=== PATIENT | female | born 1965 | race American Indian/Alaskan Native ===

== ENCOUNTER 2018-01-17 20:10 | Emergency (ER) | payer MEDICAID, MEDICARE ==
[2018-01-17] MEDS ORDERED: ZOFRAN IV ONE (20:36)
[2018-01-17] MEDS ORDERED: MORPHINE IV ONE (20:36)
[2018-01-17] MEDS ORDERED: ASPIRIN PO ONE (20:36)
[2018-01-17 20:53] LABS: Basophils % (Auto) 0.4 % (0.0-1.8); Eosinophils % (Auto) 0.6 % (0.0-4.3); Hemoglobin 11.5 gm/dl (10.1-14.3); Lymphocytes # (Auto) 1.5 K/mm3 (1.2-5.4); Lymphocytes % (Auto) 22.1 % (13.4-35.0); Mean Corpuscular HGB Conc 33 % (30-34); Mean Corpuscular Hemoglobin 27 pg (28-32); Mean Corpuscular Volume 82 fl (79-97); Monocytes % (Auto) 13.7 % (0.0-7.3); Platelet Count 237 K/mm3 (140-440); Red Blood Count 4.29 M/mm3 (3.65-5.03); Red Cell Distribution Width 15.2 % (13.2-15.2)
[2018-01-17 21:01] VITALS: BP 117/77
[2018-01-17 21:09] LABS: Alanine Aminotransferase 13 units/L (7-56); Albumin 4.1 g/dL (3.9-5); BUN/Creatinine Ratio 10; Blood Urea Nitrogen 6 mg/dL (7-17); Calcium 8.7 mg/dL (8.4-10.2); Hemolysis Index 0; Lipase 13 units/L (13-60)
[2018-01-17 21:10] LABS: INR 1.1 (0.87-1.13)
[2018-01-17 21:11] LABS: Partial Thromboplastin Time 33.8 Sec. (24.2-36.6)
--- NOTE | 2018-01-17 23:35 | Cat Scan Report ---
FINAL REPORT EXAM: CT ANGIO CHEST HISTORY: severe chest pain TECHNIQUE: High-resolution helical axial images were obtained of the chest during intravenous administration of iodinated contrast. Images are reconstructed in the sagittal and coronal planes. PRIORS: None. FINDINGS: There is no evidence of pulmonary embolism, the pulmonary arteries opacify normally. The heart and thoracic aorta appear normal. There are numerous small mediastinal lymph nodes several of which are calcified consistent with old granulomatous disease. There is an enlarged subcarinal lymph node measuring 1.6 x 3.9 cm without calcification. There is right hilar adenopathy measuring 3.0 x 2.0 cm. Is a cluster of mildly enlarged right infrahilar lymph nodes without calcification. These are adjacent to a focal medial right lower lobe consolidative infiltrate. There is bibasilar dependent atelectasis. There is a ground-glass infiltrate in the anterior medial right middle lobe. Images through the upper abdomen are unremarkable. The bones are unremarkable. IMPRESSION: 1. No evidence of pulmonary embolism. 2. There is a infiltrate in the medial right lower lobe consistent with pneumonia. A small ground-glass infiltrate in the anterior medial right middle lobe also likely represents pneumonia. 3. Calcified mediastinal lymph nodes are consistent with old granulomatous disease. There are numerous enlarged mediastinal and right hilar lymph nodes that are abnormal. They may be associated with granulomatous disease or infection but neoplasm cannot be excluded. Follow-up CT is recommended in 6-8 weeks.
[2018-01-17] MEDS ORDERED: ZITHROMAX 500 MG in NACL 0.9% 250ML 250 ML IV ONE (23:41)
[2018-01-17] MEDS ORDERED: ROCEPHIN/NS 2 GM/100 ML 2 GM/100 ML BAG IV ONE (23:41)
[2018-01-18] MEDS ORDERED: cefTRIAXone 2 GM in NACL 0.9% 20 ML IV ONE (01:00)
--- NOTE | 2018-01-18 01:57 | Emergency Department Report ---
HPI - General Chief Complaint: Chest Pain Time Seen by Provider: 01/17/18 20:20 ED Past Medical Hx - Past Medical History Hx Hypertension: Yes (no meds) Hx Arthritis: Yes - Social History Smoking Status: Current Every Day Smoker Substance Use Type: Alcohol - Medications Home Medications: Home Medications Medication Instructions Recorded Confirmed Last Taken Type Ibuprofen [Motrin 800 MG tab] 800 mg PO TID #30 tablet 08/09/13 03/22/15 Rx Benzonatate [Tessalon Perles] 100 mg PO Q8HR PRN #30 capsule 01/18/18 Unknown Rx Levofloxacin [Levaquin] 750 mg PO QDAY #7 tablet 01/18/18 Unknown Rx ED Review of Systems ROS: Stated complaint: CHEST PAIN Other details as noted in HPI Physical Exam - Physical Exam Vital Signs: Vital Signs 01/17/18 20:35 Temperature 98.7 F Pulse Rate 80 Respiratory 18 Rate Blood Pressure 117/77 Blood Pressure 117/77 [Left] O2 Sat by Pulse 95 Oximetry Physical Exam: - Physical Exam Physical Exam: - General Limitations: No Limitations General appearance: alert, in no apparent distress, obese - Head Head exam: Present: atraumatic, normocephalic - Eye Eye exam: Present: normal appearance - ENT ENT exam: Present: mucous membranes moist - Neck Neck exam: Present: normal inspection - Respiratory Respiratory exam: Present: normal lung sounds bilaterally. Absent: respiratory distress - Cardiovascular Cardiovascular Exam: Present: normal rhythm, tachycardia. Absent: systolic murmur, diastolic murmur, rubs, gallop - GI/Abdominal GI/Abdominal exam: Present: soft, normal bowel sounds - Extremities Exam Extremities exam: Present: normal inspection - Back Exam Back exam: Present: normal inspection - Neurological Exam Neurological exam: Present: alert, oriented X3 - Psychiatric Psychiatric exam: normal affect and mood - Skin Skin exam: Present: warm, dry, intact, normal color. Absent: rash ED Course Vital Signs 01/17/18 20:35 Temperature 98.7 F Pulse Rate 80 Respiratory 18 Rate Blood Pressure 117/77 Blood Pressure 117/77 [Left] O2 Sat by Pulse 95 Oximetry ED Medical Decision Making - Lab Data Result diagrams: 01/17/18 20:40 01/17/18 20:40 Critical care attestation.: If time is entered above; I have spent that time in minutes in the direct care of this critically ill patient, excluding procedure time. ED Disposition Clinical Impression: Pneumonia Qualifiers: Pneumonia type: due to unspecified organism Laterality: bilateral Lung location : lower lobe of lung Qualified Code(s): J18.1 - Lobar pneumonia, unspecified organism Disposition: TO HOME OR SELFCARE Is pt being admited?: No Does the pt Need Aspirin: No Condition: Stable Instructions: Bacterial Pneumonia (ED) Prescriptions: Benzonatate [Tessalon Perles] 100 mg PO Q8HR PRN #30 capsule PRN Reason: Cough Levofloxacin [Levaquin] 750 mg PO QDAY #7 tablet Referrals: DONNA JONES MD [Primary Care Provider] - 3-5 Days
== END 2018-01-18 02:35 | disposition home or self-care (01) ==
LOC: ED 20:10
DX: J18.9 Pneumonia, unspecified organism (principal); I10 Essential (primary) hypertension; M19.90 Unspecified osteoarthritis, unspecified site; F17.200 Nicotine dependence, unspecified, uncomplicated
CPT/HCPCS: 36415; 71275; 80053; 82150; 82550; 83690; 83880; 84484; 85025; 85379; 85610; 85730; 93005; 93010; 96365; 96375; 99284; J0456; J0696; J2270; J2405; J7050; Q9967

== ENCOUNTER 2019-05-17 09:35 | Emergency (ER) | payer SELFPAY ==
[2019-05-17] MEDS ORDERED: BENTYL IM ONE (10:09)
[2019-05-17] MEDS ORDERED: NACL 0.9% 1000 ML 1,000 ML IV ONE (10:09)
[2019-05-17] MEDS ORDERED: PEPCID IV ONE (10:09)
[2019-05-17] MEDS ORDERED: ZOFRAN IV ONE (10:09)
[2019-05-17 10:32] LABS: Basophils % (Auto) 0.6 % (0.0-1.8); Eosinophils # (Auto) 0.1 K/mm3 (0.0-0.4); Eosinophils % (Auto) 1.4 % (0.0-4.3); Hematocrit 40.9 % (30.3-42.9); Hemoglobin 13.5 gm/dl (10.1-14.3); Lymphocytes # (Auto) 1.7 K/mm3 (1.2-5.4); Lymphocytes % (Auto) 47.6 % (13.4-35.0); Mean Corpuscular HGB Conc 33 % (30-34); Mean Corpuscular Volume 78 fl (79-97); Monocytes # (Auto) 0.3 K/mm3 (0.0-0.8); Monocytes % (Auto) 8.8 % (0.0-7.3); Platelet Count 272 K/mm3 (140-440); Red Blood Count 5.21 M/mm3 (3.65-5.03); Red Cell Distribution Width 15.2 % (13.2-15.2)
[2019-05-17 10:57] LABS: Alanine Aminotransferase 26 units/L (7-56); Albumin 4.7 g/dL (3.9-5); BUN/Creatinine Ratio 20; Blood Urea Nitrogen 10 mg/dL (7-17); Calcium 9.9 mg/dL (8.4-10.2); Hemolysis Index 6
--- NOTE | 2019-05-17 12:31 | Emergency Department Report ---
ED N/V/D HPI - General Chief complaint: Nausea/Vomiting/Diarrhea Stated complaint: VOMITING/DIZZINESS/HIGH BP Time Seen by Provider: 05/17/19 10:08 Source: patient Mode of arrival: Ambulatory Limitations: No Limitations - History of Present Illness Initial comments: Patient is a 53-year-old female who is presenting with epigastric discomfort with nausea vomiting and slight loose stools. Patient states she has a history of these type of episodes in the past and has a history of GERD. Patient takes omeprazole but states it 7 times a year she does have episodes where she can't stop vomiting. She denies any fevers chills cough, con gestion at this time. - Related Data Previous Rx's Medication Instructions Recorded Last Taken Type Ibuprofen [Motrin 800 MG tab] 800 mg PO TID #30 tablet 08/09/13 03/22/15 Rx Benzonatate [Tessalon Perles] 100 mg PO Q8HR PRN #30 capsule 01/18/18 Unknown Rx levoFLOXacin [Levaquin] 750 mg PO QDAY #7 tablet 01/18/18 Unknown Rx Omeprazole 40 mg PO DAILY #30 capsule. 08/15/18 Unknown Rx amLODIPine [Norvasc] 10 mg PO DAILY #30 tab 08/15/18 Unknown Rx Dicyclomine [Bentyl] 20 mg PO QID #10 tablet 05/17/19 Unknown Rx Famotidine [Pepcid] 40 mg PO QHS #10 tablet 05/17/19 Unknown Rx Ondansetron [Zofran Odt] 4 mg PO Q8HR #10 tab.rapdis 05/17/19 Unknown Rx Allergies Allergy/AdvReac Type Severity Reaction Status Date / Time No Known Allergies Allergy Unverified 08/09/13 13:05 ED Review of Systems ROS: Stated complaint: VOMITING/DIZZINESS/HIGH BP Other details as noted in HPI Comment: All other systems reviewed and negative ED Past Medical Hx - Past Medical History Previous Medical History?: Yes Hx Hypertension: Yes (no meds) Hx Arthritis: Yes - Surgical History Past Surgical History?: No - Social History Smoking Status: Current Every Day Smoker Substance Use Type: None - Medications Home Medications: Home Medications Medication Instructions Recorded Confirmed Last Taken Type Ibuprofen [Motrin 800 MG tab] 800 mg PO TID #30 tablet 08/09/13 03/22/1503/22 Rx Benzonatate [Tessalon Perles] 100 mg PO Q8HR PRN #30 capsule 01/18/18 Unknown Rx levoFLOXacin [Levaquin] 750 mg PO QDAY #7 tablet 01/18/18 Unknown Rx Omeprazole 40 mg PO DAILY #30 capsule. 08/15/18 Unknown Rx amLODIPine [Norvasc] 10 mg PO DAILY #30 tab 08/15/18 Unknown Rx Dicyclomine [Bentyl] 20 mg PO QID #10 tablet 05/17/19 Unknown Rx Famotidine [Pepcid] 40 mg PO QHS #10 tablet 05/17/19 Unknown Rx Ondansetron [Zofran Odt] 4 mg PO Q8HR #10 tab.rapdis 05/17/19 Unknown Rx ED Physical Exam - General Limitations: No Limitations General appearance: alert, in no apparent distress - Head Head exam: Present: atraumatic, normocephalic - Eye Eye exam: Present: normal appearance - ENT ENT exam: Present: mucous membranes moist - Neck Neck exam: Present: normal inspection - Respiratory Respiratory exam: Present: normal lung sounds bilaterally. Absent: respiratory distress, wheezes, rales, rhonchi - Cardiovascular Cardiovascular Exam: Present: regular rate, normal rhythm. Absent: systolic murmur, diastolic murmur, rubs, gallop - GI/Abdominal GI/Abdominal exam: Present: soft, tenderness (epigastric), normal bowel sounds. Absent: distended, guarding, rebound, rigid - Extremities Exam Extremities exam: Present: normal inspection - Back Exam Back exam: Present: normal inspection - Neurological Exam Neurological exam: Present: alert, oriented X3 - Psychiatric Psychiatric exam: Present: normal affect, normal mood - Skin Skin exam: Present: warm, dry, intact, normal color. Absent: rash ED Course Vital Signs 05/17/19 09:52 Temperature 97.9 F Pulse Rate 90 Respiratory 20 Rate Blood Pressure 134/91 O2 Sat by Pulse 98 Oximetry ED Medical Decision Making - Lab Data Result diagrams: 05/17/19 10:13 05/17/19 10:13 Lab Results 05/17/19 05/17/19 Range/Units 10:13 10:13 WBC 3.6 L (4.5-11.0) K/mm3 RBC 5.21 H (3.65-5.03) M/mm3 Hgb 13.5 (10.1-14.3) gm/dl Hct 40.9 (30.3-42.9) % MCV 78 L (79-97) fl MCH 26 L (28-32) pg MCHC 33 (30-34) % RDW 15.2 (13.2-15.2) % Plt Count 272 (140-440) K/mm3 Lymph % (Auto) 47.6 H (13.4-35.0) % [place] % (Auto) 8.8 H (0.0-7.3) % Eos % (Auto) 1.4 (0.0-4.3) % Baso % (Auto) 0.6 (0.0-1.8) % Lymph # 1.7 (1.2-5.4) K/mm3 [place] # 0.3 (0.0-0.8) K/mm3 Eos # 0.1 (0.0-0.4) K/mm3 Baso # 0.0 (0.0-0.1) K/mm3 Seg Neutrophils % 41.6 (40.0-70.0) % Seg Neutrophils # 1.5 L (1.8-7.7) K/mm3 Sodium 142 (137-145) mmol/L Potassium 3.8 (3.6-5.0) mmol/L Chloride 105.1 (98-107) mmol/L Carbon Dioxide 23 (22-30) mmol/L Anion Gap 18 mmol/L BUN 10 (7-17) mg/dL Creatinine 0.5 L (0.7-1.2) mg/dL Estimated GFR > 60 ml/min BUN/Creatinine Ratio 20 % Glucose 127 H (65-100) mg/dL Calcium 9.9 (8.4-10.2) mg/dL Total Bilirubin 0.40 (0.1-1.2) mg/dL AST 20 (5-40) units/L ALT 26 (7-56) units/L Alkaline Phosphatase 104 (35-129) units/L Total Protein 8.4 H (6.3-8.2) g/dL Albumin 4.7 (3.9-5) g/dL Albumin/Globulin Ratio 1.3 % Lipase 18 (13-60) units/L - Medical Decision Making Patient was hydrated and given pain medications for symptomatic relief. Patient states that she feels much improved. Left wrist is unremarkable. Patient be discharged home follow up with her GI doctor Critical care attestation.: If time is entered above; I have spent that time in minutes in the direct care of this critically ill patient, excluding procedure time. ED Disposition Clinical Impression: Gastroenteritis Disposition: DC-01 TO HOME OR SELFCARE Is pt being admited?: No Does the pt Need Aspirin: No Condition: Stable Instructions: Gastroenteritis (ED) Additional Instructions: Please follow-up with your senior web analyst Referrals: JOSH GARCIAS MD [Primary Care Provider] - 3-5 Days Time of Disposition: 12:30
[2019-05-17 12:46] VITALS: BP 136/90
[2019-05-17 12:58] LABS: Bilirubin,Urine NEG (Negative); Color,Urine Yellow (Yellow)
[2019-05-17 12:59] LABS: Blood,Urine SM (Negative); Protein,Urine <15 mg/dL mg/dL (Negative); Urobilinogen,Urine < 2.0 mg/dL (<2.0)
== END 2019-05-17 12:45 | disposition home or self-care (01) ==
LOC: ED 09:35
DX: K52.9 Noninfective gastroenteritis and colitis, unspecified (principal); I10 Essential (primary) hypertension; M19.90 Unspecified osteoarthritis, unspecified site; F17.200 Nicotine dependence, unspecified, uncomplicated; Z79.899 Other long term (current) drug therapy
CPT/HCPCS: 36415; 80053; 81001; 83690; 85025; 96361; 96372; 96374; 96375; 99283; J0500; J2405; J7030

== ENCOUNTER 2019-09-12 13:54 | Emergency (ER) | payer SELFPAY ==
[2019-09-12 14:20] VITALS: BP 132/81
[2019-09-12] MEDS ORDERED: IBUPROFEN 600 MG TAB PO ONE (17:25)
--- NOTE | 2019-09-12 17:26 | Event Note ---
ED Screening Note Date of service: 09/12/19 Time: 17:26 ED Screening Note: 54 y o female presents with URI sx and malaise This initial assessment/diagnostic orders/clinical plan/treatment(s) is/are subject to change based on patients health status, clinical progression and re- assessment by fellow clinical providers in the ED. Further treatment and workup at subsequent clinical providers discretion. Patient/guardian urged not to elope from the ED as their condition may be serious if not clinically assessed and managed. Initial orders include: cxr
--- NOTE | 2019-09-12 17:58 | XRay Report ---
CHEST PA AND LATERAL VIEWS INDICATION: cough/malaise. COMPARISON: No prior chest radiograph. Compared with chest CT of 01/18/2019. FINDINGS: Support devices: None Heart: Normal Lungs/Pleura: No acute pulmonary or pleural findings. On plain radiograph, I do not see evidence of m ediastinal and right hilar adenopathy. IMPRESSION: 1. No acute disease. Signer Name: Brian Guevara MD Signed: 09/12/2019 5:53 PM Workstation Name: [id number]
[2019-09-12] MEDS ORDERED: dexAMETHasone 4 MG/ML VIAL IM STA (19:37)
[2019-09-12] MEDS ORDERED: IBUPROFEN 800 MG TAB PO ONE (19:37)
--- NOTE | 2019-09-12 19:37 | Emergency Department Report ---
Minor Respiratory - HPI Chief Complaint: Sore Throat Stated Complaint: SORE THROAT/NIGHT SWEATS Time Seen by Provider: 09/12/19 19:36 Duration: 5 Days Pain Location: Facial, Throat Severity: severe Minor Respiratory: Yes Rhinorrhea, Yes Sore Throat (10/10), Yes Able to Tolerate Fluids, Yes Cough (dry cough), Yes Sick Contacts, No Ear Pain, No Hemoptysis, No Chest Pain, No Shortness of Breath, No Fever Other History: This is a 54-year-old female patient here complaining of sore throat and facial pain, night sweats this is started over 5 days ago was getting worse over the last 2 days and return for night sweats 2 nights ago with nasal congestion. Sore throat is 10/10. Denies any nausea or vomiting. Denies any chest pain or shortness of breath. Reports dry cough. Over the counter sinus medication taken without any relief. Pain is worse with swallowing. Denies any drooling. ED Review of Systems ROS: Stated complaint: SORE THROAT/NIGHT SWEATS Other details as noted in HPI Constitutional: chills Eyes: denies: eye discharge ENT: throat pain, congestion Respiratory: cough. denies: shortness of breath, SOB with exertion, SOB at rest, stridor, wheezing Cardiovascular: denies: chest pain, dyspnea on exertion Gastrointestinal: denies: nausea, vomiting Musculoskeletal: denies: back pain, joint swelling, arthralgia, myalgia Skin: denies: rash Neurological: denies: headache ED Past Medical Hx - Past Medical History Previous Medical History?: Yes Hx Hypertension: Yes (no meds) Hx Arthritis: Yes - Surgical History Past Surgical History?: Yes Additional Surgical History: Hysterectomy - Family History Family history: hypertension - Social History Smoking Status: Current Every Day Smoker Substance Use Type: Alcohol - Medications Home Medications: Home Medications Medication Instructions Recorded Confirmed Last Taken Type Ibuprofen [Motrin 800 MG tab] 800 mg PO TID #30 tablet 08/09/13 03/22/15 03/22/15 Rx Benzonatate [Tessalon Perles] 100 mg PO Q8HR PRN #30 capsule 01/18/18 Unknown Rx levoFLOXacin [Levaquin] 750 mg PO QDAY #7 tablet 01/18/18 Unknown Rx Omeprazole 40 mg PO DAILY #30 capsule 08/15/18 Unknown Rx amLODIPine 10 mg PO DAILY #30 tab 08/15/18 Unknown Rx Dicyclomine [Bentyl] 20 mg PO QID #10 tablet 05/17/19 Unknown Rx Famotidine [Pepcid] 40 mg PO QHS #10 tablet 05/17/19 Unknown Rx Ondansetron [Zofran Odt] 4 mg PO Q8HR #10 tab.rapdis 05/17/19 Unknown Rx Amoxicillin/K Clav Tab [Augmentin 1 tab PO Q12HR #20 tab 09/12/19 Unknown Rx 875MG TAB] Cetirizine HCl [ZyrTEC] 10 mg PO QAM 14 Days #14 capsule 09/12/19 Unknown Rx Fluticasone [Flonase] 1 spray NS QDAY 14 Days #1 bottle 09/12/19 Unknown Rx Ibuprofen [Motrin 600 MG tab] 600 mg PO Q8H PRN #15 tablet 09/12/19 Unknown Rx guaiFENesin/CODEINE [Robitussin AC] 10 ml PO QHS PRN #70 oral.liqd 09/12/19 Unknown Rx predniSONE [Deltasone] 50 mg PO QDAY 3 Days #3 tab 09/12/19 Unknown Rx Minor Respiratory Exam - Exam General: Vital signs noted. No distress. Alert and acting appropriately. This is a 54-year-old female well-nourished well-developed in no acute distress. HEENT: Yes Pharyngeal Erythema (bilateral tonsillar enlargement and erythema.), Yes Moist Mucous Membranes, Yes Rhinorrhea (clear nasal drainage with mucosal erythema and thickening.), Yes Frontal Tenderness, Yes Maxillary Tenderness, No Pharyngeal Exudates, No Conjuctival Injection Ear: Neither TM Bulge (bilateral middle ear effusion), Neither TM Erythema, Neither EAC Pain, Neither EAC Discharge Neck: Yes Supple, No Adenopathy Lungs: Yes Good Air Exchange, Yes Cough (dry cough), No Wheezes, No Ronchi, No Stridor, No Labored Respirations, No Retractions, No Use of Accessory Muscles, No Other Abnormal Lung Sounds Heart: Yes Regular, No Murmur Abdomen: Yes Normal Bowel Sounds, No Tenderness, No Peritoneal Signs Skin: No Rash, No Edema Neurologic: Alert and oriented, no deficits. Musculoskeletal: Unremarkable. No cce. + 2 pulses in all extremities, no neurovascular compromise ED Course Vital Signs 09/12/19 14:16 Temperature 98.4 F Pulse Rate 87 Respiratory 18 Rate Blood Pressure 132/81 O2 Sat by Pulse 97 Oximetry - Reevaluation(s) Reevaluation #1: 09/12/19 20:06 She given ibuprofen 800 mg by mouth and Decadron 10 mg IM in emergency room ED Medical Decision Making - Radiology Data Radiology results: report reviewed Chest x-ray dictated by radiologist and report reviewed by myself and no acute findings. Unable to properly area due to computer malfunction. - Medical Decision Making This is a 54-year-old female here reports that she has been having symptoms of sore throats that is getting worse over the last 2 days. She is found to have sinusitis and tonsillitis with cough. X-ray dictated by radiologist report reviewed by myself and no acute cardiopulmonary findings. Patient is stable in no acute distress she was given Decadron and ibuprofen in emergency room . Discussed with her x-ray results she voiced understanding patient follow-up with her primary care physician in 2-3 days and she voiced understanding. Vital signs stable she is afebrile and discharged home with her family member in stable condition. She has no pain at present. Patient discharged home with prescription for guaifenesin with codeine cough syrup, Augmentin, Zyrtec, Flonase, Motrin and prednisone. - Differential Diagnosis PNA, bronchitis, strep versus tonsillitis, urinary cough and congestion, si Critical care attestation.: If time is entered above; I have spent that time in minutes in the direct care of this critically ill patient, excluding procedure time. ED Disposition Clinical Impression: Cough in adult Acute tonsillitis Qualifiers: Pharyngitis/tonsillitis etiology: unspecified etiology Qualified Code(s): J03.90 - Acute tonsillitis, unspecified Sinusitis, acute Qualifiers: Sinusitis location: pansinusitis Recurrence: not specified as recurrent Qualified Code(s): J01.40 - Acute pansinusitis, unspecified Disposition: - TO HOME OR SELFCARE Is pt being admited?: No Does the pt Need Aspirin: No Condition: Stable Instructions: Sinusitis (ED), Tonsillitis (ED), Acute Cough (ED) Additional Instructions: Follow up with primary care physician in 2-3 days Take Medication as prescribed Symptoms worsen, return to the emergency room. Rest and increasing fluid intake. Please do not drive or operate heavy machinery while taking cough medicine with codeine for cough is seen cause drowsiness. Referrals: PRIMARY CARE,MD [Primary Care Provider] - 3-5 Days Forms: Accompanied Note, Work/School Release Form(ED)
== END 2019-09-12 20:30 | disposition home or self-care (01) ==
LOC: ED 13:54
DX: R05 Cough (principal); J03.90 Acute tonsillitis, unspecified; J01.90 Acute sinusitis, unspecified; I10 Essential (primary) hypertension; M19.90 Unspecified osteoarthritis, unspecified site; F17.200 Nicotine dependence, unspecified, uncomplicated; Z90.710 Acquired absence of both cervix and uterus; Z79.1 Long term (current) use of non-steroidal anti-inflammatories (NSAID); Z79.2 Long term (current) use of antibiotics; Z79.899 Other long term (current) drug therapy
CPT/HCPCS: 71046; 96372; 99283; J1100

== ENCOUNTER 2020-10-13 09:16 | Emergency (ER) | payer SELFPAY ==
[2020-10-13 09:32] VITALS: BP 149/80
[2020-10-13 10:22] LABS: Bilirubin,Urine NEG (Negative); Blood,Urine NEG (Negative); Color,Urine Yellow (Yellow); Mucus,Urine FEW /HPF; Protein,Urine <15 mg/dL mg/dL (Negative); RBC,Urine < 1.0 /HPF (0.0-6.0); Urobilinogen,Urine < 2.0 mg/dL (<2.0); WBC,Urine < 1.0 /HPF (0.0-6.0)
[2020-10-13 10:53] LABS: Basophils % (Auto) 0.6 % (0.0-1.8); Eosinophils # (Auto) 0.1 K/mm3 (0.0-0.4); Eosinophils % (Auto) 1.5 % (0.0-4.3); Hematocrit 38.7 % (30.3-42.9); Hemoglobin 12.9 gm/dl (10.1-14.3); Lymphocytes # (Auto) 2.2 K/mm3 (1.2-5.4); Lymphocytes % (Auto) 45.3 % (13.4-35.0); Mean Corpuscular HGB Conc 33 % (30-34); Mean Corpuscular Volume 82 fl (79-97); Monocytes # (Auto) 0.4 K/mm3 (0.0-0.8); Monocytes % (Auto) 8.1 % (0.0-7.3); Platelet Count 250 K/mm3 (140-440); Red Blood Count 4.74 M/mm3 (3.65-5.03); Red Cell Distribution Width 14.9 % (13.2-15.2)
[2020-10-13 11:15] LABS: Alanine Aminotransferase 19 units/L (7-56); Albumin 4.4 g/dL (3.9-5); Blood Urea Nitrogen 11 mg/dL (7-17); Calcium 9.8 mg/dL (8.4-10.2); Hemolysis Index 5
[2020-10-13 11:16] LABS: BUN/Creatinine Ratio 16
[2020-10-13] MEDS ORDERED: oxyCODONE /ACETAMINOPHEN 5-325MG TAB PO ONE (12:11)
[2020-10-13] MEDS ORDERED: ONDANSETRON 4 MG ODT TAB PO ONE (12:11)
--- NOTE | 2020-10-13 12:55 | Emergency Department Report ---
ED General Adult HPI - General Chief complaint: Abdominal Pain Stated complaint: STOMACH PAIN Time Seen by Provider: 10/13/20 12:10 Source: patient Mode of arrival: Ambulatory Limitations: No Limitations - History of Present Illness Initial comments: 55-year-old female presenting with chief complaint of left lower quadrant abdominal pain x1.5 weeks. She reports slight nausea and slight dysuria but denies vomiting, fevers, diarrhea. She states some constipation but had a bowel movement today. Pain is nonradiating and described as moderate. It is intermittent. No alleviating or exacerbating factors. Severity scale (0 -10): 8 - Related Data Previous Rx's Medication Instructions Recorded Last Taken Type Ibuprofen [Motrin 800 MG tab] 800 mg PO TID #30 tablet 08/09/13 03/22/15 Rx Benzonatate [Tessalon Perles] 100 mg PO Q8HR PRN #30 capsule 01/18/18 Unknown Rx levoFLOXacin [Levaquin] 750 mg PO QDAY #7 tablet 01/18/18 Unknown Rx Omeprazole 40 mg PO DAILY #30 capsule.dr 08/15/18 Unknown Rx amLODIPine 10 mg PO DAILY #30 tab 08/15/18 Unknown Rx Dicyclomine [Bentyl] 20 mg PO QID #10 tablet 05/17/19 Unknown Rx Famotidine [Pepcid] 40 mg PO QHS #10 tablet 05/17/19 Unknown Rx Ondansetron [Zofran Odt] 4 mg PO Q8HR #10 tab.rapdis 05/17/19 Unknown Rx Amoxicillin/K Clav Tab [Augmentin 1 tab PO Q12HR #20 tab 09/12/19 Unknown Rx 875MG TAB] Cetirizine HCl [ZyrTEC] 10 mg PO QAM 14 Days #14 capsule 09/12/19 Unknown Rx Fluticasone [Flonase] 1 spray NS QDAY 14 Days #1 bottle 09/12/19 Unknown Rx Ibuprofen [Motrin 600 MG tab] 600 mg PO Q8H PRN #15 tablet 09/12/19 Unknown Rx guaiFENesin/CODEINE [Robitussin AC] 10 ml PO QHS PRN #70 oral.liqd 09/12/19 Unknown Rx predniSONE [Deltasone] 50 mg PO QDAY 3 Days #3 tab 09/12/19 Unknown Rx Allergies Allergy/AdvReac Type Severity Reaction Status Date / Time No Known Allergies Allergy Verified 10/13/20 09:27 ED Review of Systems ROS: Stated complaint: STOMACH PAIN Other details as noted in HPI Comment: All other systems reviewed and negative Gastrointestinal: as per HPI ED Past Medical Hx - Past Medical History Hx Hypertension: Yes (no meds) Hx Arthritis: Yes - Surgical History Additional Surgical History: Hysterectomy - Social History Smoking Status: Never Smoker Substance Use Type: None - Medications Home Medications: Home Medications Medication Instructions Recorded Confirmed Last Taken Type Ibuprofen [Motrin 800 MG tab] 800 mg PO TID #30 tablet 08/09/13 03/22/15 03/22/15 Rx Benzonatate [Tessalon Perles] 100 mg PO Q8HR PRN #30 capsule 01/18/18 Unknown Rx levoFLOXacin [Levaquin] 750 mg PO QDAY #7 tablet 01/18/18 Unknown Rx Omeprazole 40 mg PO DAILY #30 capsule. 08/15/18 Unknown Rx amLODIPine 10 mg PO DAILY #30 tab 08/15/18 Unknown Rx Dicyclomine [Bentyl] 20 mg PO QID #10 tablet 05/17/19 Unknown Rx Famotidine [Pepcid] 40 mg PO QHS #10 tablet 05/17/19 Unknown Rx Ondansetron [Zofran Odt] 4 mg PO Q8HR #10 tab.rapdis 05/17/19 Unknown Rx Amoxicillin/K Clav Tab [Augmentin 1 tab PO Q12HR #20 tab 09/12/19 Unknown Rx 875MG TAB] Cetirizine HCl [ZyrTEC] 10 mg PO QAM 14 Days #14 capsule 09/12/19 Unknown Rx Fluticasone [Flonase] 1 spray NS QDAY 14 Days #1 bottle 09/12/19 Unknown Rx Ibuprofen [Motrin 600 MG tab] 600 mg PO Q8H PRN #15 tablet 09/12/19 Unknown Rx guaiFENesin/CODEINE [Robitussin AC] 10 ml PO QHS PRN #70 oral.liqd 09/12/19 Unknown Rx predniSONE [Deltasone] 50 mg PO QDAY 3 Days #3 tab 09/12/19 Unknown Rx ED Physical Exam - General Limitations: No Limitations General appearance: alert, in no apparent distress - Head Head exam: Present: atraumatic, normocephalic - Eye Eye exam: Present: normal appearance - ENT ENT exam: Present: mucous membranes moist - Neck Neck exam: Present: normal inspection - Respiratory Respiratory exam: Present: normal lung sounds bilaterally. Absent: respiratory distress - Cardiovascular Cardiovascular Exam: Present: regular rate, normal rhythm. Absent: systolic murmur, diastolic murmur, rubs, gallop - GI/Abdominal GI/Abdominal exam: Present: soft, tenderness (Mild left lower quad), normal bowel sounds - Extremities Exam Extremities exam: Present: normal inspection - Back Exam Back exam: Present: normal inspection - Neurological Exam Neurological exam: Present: alert, oriented X3 - Psychiatric Psychiatric exam: Present: normal affect, normal mood - Skin Skin exam: Present: warm, dry, intact, normal color. Absent: rash ED Course Vital Signs 10/13/20 09:30 Temperature 98.0 F Pulse Rate 77 Respiratory 18 Rate Blood Pressure 149/80 O2 Sat by Pulse 98 Oximetry ED Medical Decision Making - Lab Data Result diagrams: 10/13/20 10:20 10/13/20 10:20 - Medical Decision Making Patient with left lower quadrant pain and tenderness on exam. Ongoing for about a week and a half. Nontoxic, no distress. Plan for labs and CT. Given Percocet and Zofran. CT report has not come back, I have contacted CT twice who states that they will try to work on this. 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 342- CT called and stated it had been dictated, no acute findings, but unable to cross over into system at the moment. - Differential Diagnosis UTI, stone, diverticulitis Critical care attestation.: If time is entered above; I have spent that time in minutes in the direct care of this critically ill patient, excluding procedure time. ED Disposition Clinical Impression: Abdominal pain Qualifiers: Abdominal location: left lower quadrant Qualified Code(s): R10.32 - Left lower quadrant pain Disposition: DC-07 LEFT AGAINST MED ADVICE Is pt being admited?: No Condition: Good Instructions: Abdominal Pain (ED), Abdominal Pain, Adult, [id number] Referrals: PRIMARY CARE, [Primary Care Provider] - 3-5 Days Time of Disposition: 15:42
== END 2020-10-13 15:44 | disposition left against medical advice (07) ==
LOC: ED 09:16
DX: R10.32 Left lower quadrant pain (principal); I10 Essential (primary) hypertension; M19.90 Unspecified osteoarthritis, unspecified site; Z79.899 Other long term (current) drug therapy; Z90.710 Acquired absence of both cervix and uterus
CPT/HCPCS: 36415; 74176; 80053; 81001; 85025; Q0162